=== PATIENT | male | born 1980 | race Two or more races ===

== ENCOUNTER 2021-07-17 12:51 | Inpatient (IN) | payer OTHER, MEDICAID ==
[~2021-07-17] VITALS: Ht 162.6 cm; Wt 62.7 kg
[2021-07-17] MEDS ORDERED: ACETAMINOPHEN 325 MG TABLET PO PRN (13:15)
[2021-07-17] MEDS ORDERED: 0.9% SODIUM CHLORIDE 10 ML SYRINGE IVP PRN (13:15)
[2021-07-17] MEDS ORDERED: MAGNESIUM SULFATE 2 GM, MVI, ADULT NO.1 WITH VIT K 10 ML, THIAMINE 100 MG, FOLIC ACID 1... IV ONE ×5 (13:15)
[2021-07-17] MEDS ORDERED: ONDANSETRON HCL 4 MG/2 ML VIAL IVP PRN ×2 (13:15→17:45)
[2021-07-17 13:26] LABS: COVID AG,FIA SOURCE NASOPHARYNGEAL
[2021-07-17 13:42] LABS: BASOPHILS % (AUTO) 3.2 % (0.0-2.0); EOSINOPHILS % (AUTO) 0.5 % (1.0-6.0); HEMOGLOBIN 14.4 g/dL (13.5-17.5); LYMPHOCYTES # (AUTO) 0.6 K/uL (1.0-4.8); LYMPHOCYTES % (AUTO) 13.2 % (22.0-44.0); MEAN CORPUSCULAR HEMOGLOBIN 34.2 pg (26.0-34.0); MEAN CORPUSCULAR VOLUME 98 fL (80-100); MONOCYTES # (AUTO) 0.5 K/uL (0.1-1.0); NEUTROPHILS # (AUTO) 3.2 K/uL (1.8-7.7); NEUTROPHILS % (AUTO) 72.1 % (40.0-70.0); PLATELET COUNT (AUTO) 84 K/uL (150-450); RED BLOOD CELL COUNT(AUTO) 4.21 MIL/uL (4.50-5.90); RED CELL DISTRIBUTION WIDTH 13.9 % (11.5-14.5)
[2021-07-17 13:44] LABS: ANION GAP 11 mmol/L (8-16); CALCIUM, TOTAL 8.7 mg/dL (8.8-10.5); CARBON DIOXIDE 30 mmol/L (22-29); CHLORIDE 101 mmol/L (98-107); CREATININE 0.58 mg/dL (0.60-1.30); GLUCOSE,RANDOM 128 mg/dL (70-110); POTASSIUM 3.4 mmol/L (3.5-5.1); SODIUM SERUM 142 mmol/L (136-145); UREA NITROGEN, BLOOD 5 mg/dL (7-18)
[2021-07-17 13:48] LABS: GLOMERULAR FILTR. RATE CALC > 60 mL/min (>60)
[2021-07-17 13:49] LABS: ALANINE AMINOTRANSFERASE 70 U/L (12-78); ALBUMIN 4.5 g/dL (3.4-5.0); ALKALINE PHOSPHATASE 146 U/L (46-116); ASPARTATE AMINOTRANSFERASE 88 U/L (15-37); BILIRUBIN,TOTAL 0.7 mg/dL (0.1-1.0); LIPASE 228 U/L (73-393); TOTAL PROTEIN, SERUM 8.7 g/dL (6.4-8.2)
[2021-07-17 15:48] VITALS: BP 156/83
[2021-07-17] MEDS ORDERED: POTASSIUM CHLORIDE 20 MEQ ER TABLET PO ONE (16:00)
[2021-07-17] MEDS ORDERED: ALBUTEROL SULFATE 2.5 MG/0.5 ML NEB SOLUTION NEB PRN (17:45)
[2021-07-17] MEDS ORDERED: MAGNESIUM HYDROXIDE SUSPENSION 30 ML UDCUP PO PRN (17:45)
[2021-07-17] MEDS: SODIUM CHLORIDE 0.45% 1,000 ML IV SCH (17:45)
[2021-07-17] MEDS ORDERED: BISACODYL 10 MG RECTAL RECTAL SUPPOSITORY PR PRN (17:45)
[2021-07-17] MEDS ORDERED: IPRATROPIUM BROMIDE 0.5 MG/2.5 ML NEB SOLUTION NEB PRN (17:45)
[2021-07-17] MEDS ORDERED: MORPHINE SULFATE 2 MG/ML SYRINGE IVP PRN (17:45)
[2021-07-17] MEDS ORDERED: ZOLPIDEM TARTRATE 5 MG TABLET PO PRN (17:45)
[2021-07-17] MEDS: ChlordiazePOXIDE HCL 25 MG CAPSULE PO SCH (17:59)
[2021-07-17 19:32] VITALS: BP 150/97
[2021-07-17] MEDS: DOCUSATE SODIUM 100 MG CAPSULE PO SCH (20:40)
[2021-07-17 23:00] LABS: APPEARANCE,URINE CLEAR (CLEAR); BILIRUBIN,URINE NEGATIVE (NEGATIVE); GLUCOSE, URINE (UA) NEGATIVE (NEGATIVE); KETONES,URINE NEGATIVE (NEGATIVE); LEUKOCYTE ESTERASE ,URINE NEGATIVE (NEGATIVE); NITRATE,URINE NEGATIVE (NEGATIVE); OCCULT BLOOD,URINE NEGATIVE (NEGATIVE); PH,URINE 7.5 (5.0-8.0); PROTEIN,URINE TRACE (NEGATIVE)
[2021-07-17 23:04] LABS: BACTERIA,URINE Rare /HPF (None Seen); RBC,URINE 0-2 /HPF (0-2); WBC,URINE 0-2 /HPF (0-5)
[2021-07-17 23:06] LABS: AMPHET/METH SCREEN,URINE NEGATIVE (NEGATIVE); BARBITURATE SCREEN, URINE NEGATIVE (NEGATIVE); BENZODIAZEPINES SCREEN,URINE NEGATIVE (NEGATIVE); CANNABINOID SCREEN,URINE NEGATIVE (NEGATIVE); COCAINE SCREEN,URINE NEGATIVE (NEGATIVE); METHADONE SCREEN, URINE NEGATIVE (NEGATIVE); OPIATE SCREEN,URINE NEGATIVE (NEGATIVE)
[2021-07-17 23:10] LABS: PHENCYCLIDINE SCREEN,URINE NEGATIVE (NEGATIVE)
[2021-07-18] MEDS: ChlordiazePOXIDE HCL 25 MG CAPSULE PO SCH ×4 (00:26→18:11)
[2021-07-18 04:34] VITALS: BP 140/94
[2021-07-18] MEDS: SODIUM CHLORIDE 0.45% 1,000 ML IV SCH ×2 (04:37→06:16)
[2021-07-18 07:18] VITALS: BP 139/94
[2021-07-18 07:53] LABS: BASOPHILS % (AUTO) 2.6 % (0.0-2.0); EOSINOPHILS % (AUTO) 2.2 % (1.0-6.0); HEMATOCRIT 40.4 % (41-53); HEMOGLOBIN 14.2 g/dL (13.5-17.5); LYMPHOCYTES # (AUTO) 0.5 K/uL (1.0-4.8); LYMPHOCYTES % (AUTO) 12.5 % (22.0-44.0); MEAN CORPUSCULAR HEMOGLOBIN 34.6 pg (26.0-34.0); MEAN CORPUSCULAR HGB CONC 35.2 G/dL (31.0-37.0); MEAN CORPUSCULAR VOLUME 98 fL (80-100); MONOCYTES # (AUTO) 0.5 K/uL (0.1-1.0); MONOCYTES % (AUTO) 12.1 % (2.0-9.0); NEUTROPHILS # (AUTO) 3.1 K/uL (1.8-7.7); NEUTROPHILS % (AUTO) 70.6 % (40.0-70.0); PLATELET COUNT (AUTO) 74 K/uL (150-450); RED BLOOD CELL COUNT(AUTO) 4.11 MIL/uL (4.50-5.90); RED CELL DISTRIBUTION WIDTH 13.7 % (11.5-14.5)
[2021-07-18] MEDS: MULTIVITAMINS, THERAPEUTIC TABLET PO SCH (08:00)
[2021-07-18] MEDS: DOCUSATE SODIUM 100 MG CAPSULE PO SCH (08:00)
[2021-07-18] MEDS: PANTOPRAZOLE SODIUM 40 MG/VIAL IVP SCH (08:00)
[2021-07-18] MEDS: THIAMINE 100 MG TABLET PO SCH (08:00)
[2021-07-18] MEDS: FOLIC ACID 1 MG TABLET PO SCH (08:00)
[2021-07-18 08:05] LABS: ALANINE AMINOTRANSFERASE 69 U/L (12-78); ALBUMIN 4.2 g/dL (3.4-5.0); ALKALINE PHOSPHATASE 139 U/L (46-116); ANION GAP 10 mmol/L (8-16); ASPARTATE AMINOTRANSFERASE 93 U/L (15-37); BILIRUBIN,TOTAL 1.6 mg/dL (0.1-1.0); CALCIUM, TOTAL 9.4 mg/dL (8.8-10.5); CARBON DIOXIDE 29 mmol/L (22-29); CHLORIDE 97 mmol/L (98-107); CREATININE 0.56 mg/dL (0.60-1.30); GLUCOSE,RANDOM 103 mg/dL (70-110); POTASSIUM 3.7 mmol/L (3.5-5.1); SODIUM SERUM 136 mmol/L (136-145); TOTAL PROTEIN, SERUM 8.1 g/dL (6.4-8.2); UREA NITROGEN, BLOOD 6 mg/dL (7-18)
[2021-07-18 08:08] LABS: GLOMERULAR FILTR. RATE CALC > 60 mL/min (>60)
[2021-07-18 13:48] VITALS: BP 134/82
[2021-07-18] MEDS: LORazepam 2 MG/ML VIAL IVP PRN (19:52)
[2021-07-18] MEDS ORDERED: DiphenhydrAMINE HCL 25 MG CAPSULE PO ONE (21:15)
[2021-07-18] MEDS ORDERED: DiphenhydrAMINE HCL 25 MG/10 ML SOLUTION UDCUP PO ONE (21:15)
[2021-07-18] MEDS ORDERED: HALOPERIDOL LACTATE 5 MG/ML VIAL IM ONE (21:15)
[2021-07-18] MEDS ORDERED: DiphenhydrAMINE HCL 50 MG/ML VIAL IM ONE (21:45)
[2021-07-19] VITALS (7 sets, daily range): BP systolic 100–142; BP diastolic 65–93
[2021-07-19] MEDS: LORazepam 2 MG/ML VIAL IVP PRN (00:48)
[2021-07-19] MEDS ORDERED: DIAZEPAM 5 MG/ML 2 ML SYRINGE IVP ONE (02:45)
[2021-07-19] MEDS ORDERED: DIAZEPAM 5 MG/ML 2 ML SYRINGE IVP PRN (03:00)
[2021-07-19] MEDS ORDERED: LORazepam 2 MG/ML VIAL IVP PRN (03:15)
[2021-07-19] MEDS ORDERED: MIDAZOLAM HCL 2 MG/2 ML VIAL ONE ×2 (03:32→03:42)
[2021-07-19] MEDS: MIDAZOLAM HCL 2 MG/2 ML VIAL IVP PRN ×4 (03:36→05:17)
[2021-07-19] MEDS ORDERED: RAPID SEQUENCE KIT [RSI] 1 EACH KIT MISC ONE (05:21)
[2021-07-19] MEDS ORDERED: ETOMIDATE 2 MG/ML 10 ML VIAL IVP ONE (05:45)
[2021-07-19] MEDS ORDERED: ROCURONIUM BROMIDE 10 MG/ML 5 ML VIAL IVP ONE (05:45)
[2021-07-19] MEDS: 1: MAGNESIUM SULFATE 2 GM, MVI, ADULT NO.1 WITH VIT K 10 ML, THIAMINE 100 MG, FOLIC ACID IV SCH ×5 (05:51)
[2021-07-19 08:21] LABS: ABG BASE EXCESS 0.8 mmol/L (-2.0-3.0); ABG CARBOXYHEMOGLOBIN 0.7 % (0.0-1.5); ABG HCO3 25.2 mmol/L (22.0-26.0); ABG METHEMOGLOBIN 0.3 % (0.0-1.5); ABG OXYGEN CONTENT 22.1 mL/dL (15.0-23.0); ABG OXYGEN SATURATION 99.7 % (95.0-98.0); ABG OXYHEMOGLOBIN 98.7 % (94.0-100.0); ABG PCO2 41 mmHg (35-45); ABG PH 7.408 (7.35-7.450); PO2, ARTERIAL BG 485.3 mmHg (88.0-96.0); SOURCE, BLOOD GAS ARTERIAL; TEMPERATURE, FAHRENHEIT, BG 98.8 FAHREN (96.0-98.6)
[2021-07-19 08:22] LABS: O2 DEVICE,BLOOD GAS VENTILATOR (ROOM AIR); PEEP,BG 5 cm H2O; SITE, BLOOD GAS RT RADIAL; SPONTANEOUS VT, BG 421 ml; VT, ABG 450 ml
[2021-07-19 09:13] LABS: BASOPHILS % (AUTO) 1.3 % (0.0-2.0); EOSINOPHILS % (AUTO) 0.4 % (1.0-6.0); HEMOGLOBIN 14.1 g/dL (13.5-17.5); LYMPHOCYTES # (AUTO) 0.5 K/uL (1.0-4.8); LYMPHOCYTES % (AUTO) 7.6 % (22.0-44.0); MEAN CORPUSCULAR HEMOGLOBIN 34.3 pg (26.0-34.0); MEAN CORPUSCULAR HGB CONC 35.1 G/dL (31.0-37.0); MEAN CORPUSCULAR VOLUME 98 fL (80-100); MONOCYTES # (AUTO) 0.6 K/uL (0.1-1.0); MONOCYTES % (AUTO) 9.5 % (2.0-9.0); NEUTROPHILS # (AUTO) 5.1 K/uL (1.8-7.7); NEUTROPHILS % (AUTO) 81.2 % (40.0-70.0); PLATELET COUNT (AUTO) 78 K/uL (150-450); RED CELL DISTRIBUTION WIDTH 13.9 % (11.5-14.5)
[2021-07-19 09:54] LABS: ALANINE AMINOTRANSFERASE 69 U/L (12-78); ALBUMIN 4.2 g/dL (3.4-5.0); ALKALINE PHOSPHATASE 120 U/L (46-116); ANION GAP 12 mmol/L (8-16); ASPARTATE AMINOTRANSFERASE 128 U/L (15-37); BILIRUBIN,TOTAL 1.6 mg/dL (0.1-1.0); CARBON DIOXIDE 25 mmol/L (22-29); CHLORIDE 100 mmol/L (98-107); CREATINE KINASE, TOTAL ONLY 3648 U/L (39-308); CREATININE 0.59 mg/dL (0.60-1.30); GLOMERULAR FILTR. RATE CALC > 60 mL/min (>60); GLUCOSE,RANDOM 118 mg/dL (70-110); POTASSIUM 3.2 mmol/L (3.5-5.1); SODIUM SERUM 137 mmol/L (136-145); UREA NITROGEN, BLOOD 11 mg/dL (7-18)
[2021-07-19] MEDS: FOLIC ACID 1 MG TABLET PO SCH (10:02)
[2021-07-19] MEDS: MULTIVITAMINS, THERAPEUTIC TABLET PO SCH (10:02)
[2021-07-19] MEDS: THIAMINE 100 MG TABLET PO SCH (10:02)
[2021-07-19] MEDS: ETHYL ALCOHOL 62% ANTISEPTIC NASAL INHALANT 0.6 ML AMPUL NASAL SCH ×2 (10:02→22:58)
[2021-07-19] MEDS: PANTOPRAZOLE SODIUM 40 MG/VIAL IVP SCH (10:02)
[2021-07-19] MEDS: ChlordiazePOXIDE HCL 25 MG CAPSULE PO SCH ×5 (11:19→23:37)
[2021-07-19] MEDS: POTASSIUM CHLORIDE 20 MEQ ER TABLET PO PRN (12:47)
[2021-07-19] MEDS: PROPOFOL 1000 MG/ISO-OSM 100 ML IV PRN ×2 (16:30→20:25)
[2021-07-19] MEDS: MIDAZOLAM HCL 100 MG in SODIUM CHLORIDE 0.9% 180 ML IV PRN (18:12)
[2021-07-19] MEDS ORDERED: SODIUM CHLORIDE 0.9% 1,000 ML ONE (19:09)
[2021-07-20] VITALS: BP 107/74
[2021-07-20] MEDS: PROPOFOL 1000 MG/ISO-OSM 100 ML IV PRN ×5 (00:55→23:33)
[2021-07-20] MEDS: MIDAZOLAM HCL 100 MG in SODIUM CHLORIDE 0.9% 180 ML IV PRN ×3 (03:15→23:10)
[2021-07-20 04:00] VITALS: BP 111/62
[2021-07-20] MEDS: ChlordiazePOXIDE HCL 25 MG CAPSULE PO SCH ×4 (05:29→23:08)
[2021-07-20 05:43] LABS: BASOPHILS % (AUTO) 1.2 % (0.0-2.0); EOSINOPHILS % (AUTO) 1.3 % (1.0-6.0); HEMATOCRIT 39.5 % (41-53); HEMOGLOBIN 13.5 g/dL (13.5-17.5); LYMPHOCYTES # (AUTO) 0.5 K/uL (1.0-4.8); LYMPHOCYTES % (AUTO) 7.9 % (22.0-44.0); MEAN CORPUSCULAR HEMOGLOBIN 34.2 pg (26.0-34.0); MEAN CORPUSCULAR HGB CONC 34.3 G/dL (31.0-37.0); MEAN CORPUSCULAR VOLUME 100 fL (80-100); MONOCYTES # (AUTO) 0.6 K/uL (0.1-1.0); MONOCYTES % (AUTO) 9.5 % (2.0-9.0); NEUTROPHILS % (AUTO) 80.1 % (40.0-70.0); PLATELET COUNT (AUTO) 80 K/uL (150-450); RED BLOOD CELL COUNT(AUTO) 3.96 MIL/uL (4.50-5.90); RED CELL DISTRIBUTION WIDTH 13.8 % (11.5-14.5)
[2021-07-20 08:00] VITALS: BP 108/60
[2021-07-20 08:23] LABS: POTASSIUM 3.3 mmol/L (3.5-5.1)
[2021-07-20] MEDS: 1: MAGNESIUM SULFATE 2 GM, MVI, ADULT NO.1 WITH VIT K 10 ML, THIAMINE 100 MG, FOLIC ACID IV SCH ×10 (09:04→21:31)
[2021-07-20] MEDS: MULTIVITAMINS, THERAPEUTIC TABLET PO SCH (09:06)
[2021-07-20] MEDS: THIAMINE 100 MG TABLET PO SCH (09:06)
[2021-07-20] MEDS: FOLIC ACID 1 MG TABLET PO SCH (09:07)
[2021-07-20] MEDS: PANTOPRAZOLE SODIUM 40 MG/VIAL IVP SCH (09:09)
[2021-07-20] MEDS: ETHYL ALCOHOL 62% ANTISEPTIC NASAL INHALANT 0.6 ML AMPUL NASAL SCH ×2 (09:10→20:07)
[2021-07-20] MEDS: POTASSIUM CHLORIDE 20 MEQ ER TABLET PO PRN ×2 (10:07→15:23)
[2021-07-20 10:32] LABS: ANION GAP 15 mmol/L (8-16); CALCIUM, TOTAL 8.6 mg/dL (8.8-10.5); CARBON DIOXIDE 21 mmol/L (22-29); CHLORIDE 104 mmol/L (98-107); CREATININE 0.56 mg/dL (0.60-1.30); GLUCOSE,RANDOM 85 mg/dL (70-110); SODIUM SERUM 140 mmol/L (136-145); UREA NITROGEN, BLOOD 12 mg/dL (7-18)
[2021-07-20 10:33] LABS: GLOMERULAR FILTR. RATE CALC > 60 mL/min (>60)
[2021-07-20 12:00] VITALS: BP 129/75
[2021-07-20 15:07] LABS: ANION GAP 9 mmol/L (8-16); CALCIUM, TOTAL 8.4 mg/dL (8.8-10.5); CARBON DIOXIDE 25 mmol/L (22-29); CHLORIDE 104 mmol/L (98-107); CREATININE 0.53 mg/dL (0.60-1.30); GLOMERULAR FILTR. RATE CALC > 60 mL/min (>60); GLUCOSE,RANDOM 83 mg/dL (70-110); POTASSIUM 3.4 mmol/L (3.5-5.1); SODIUM SERUM 138 mmol/L (136-145); UREA NITROGEN, BLOOD 12 mg/dL (7-18)
[2021-07-20 16:00] VITALS: BP 124/78
[2021-07-20] MEDS ORDERED: DEXMEDETOMIDINE HCL 200 MCG in SODIUM CHLORIDE 0.9% 48 ML IV PRN (17:15)
[2021-07-20 20:00] VITALS: BP 128/78
[2021-07-21] VITALS (7 sets, daily range): BP systolic 82–125; BP diastolic 45–78
[2021-07-21] MEDS: PROPOFOL 1000 MG/ISO-OSM 100 ML IV PRN ×4 (03:31→23:03)
[2021-07-21] MEDS: DEXMEDETOMIDINE HCL 400 MCG in SODIUM CHLORIDE 0.9% 96 ML IV PRN ×2 (03:33→21:35)
[2021-07-21] MEDS: ACETAMINOPHEN 325 MG TABLET PO PRN (03:46)
[2021-07-21 05:15] LABS: BASOPHILS % (AUTO) 0.4 % (0.0-2.0); EOSINOPHILS % (AUTO) 0.4 % (1.0-6.0); HEMATOCRIT 38.7 % (41-53); HEMOGLOBIN 13.2 g/dL (13.5-17.5); LYMPHOCYTES # (AUTO) 0.2 K/uL (1.0-4.8); LYMPHOCYTES % (AUTO) 4.6 % (22.0-44.0); MEAN CORPUSCULAR HEMOGLOBIN 34.1 pg (26.0-34.0); MEAN CORPUSCULAR HGB CONC 34.2 G/dL (31.0-37.0); MEAN CORPUSCULAR VOLUME 100 fL (80-100); MONOCYTES # (AUTO) 0.5 K/uL (0.1-1.0); MONOCYTES % (AUTO) 9.5 % (2.0-9.0); NEUTROPHILS # (AUTO) 4.5 K/uL (1.8-7.7); NEUTROPHILS % (AUTO) 85.1 % (40.0-70.0); PLATELET COUNT (AUTO) 81 K/uL (150-450); RED BLOOD CELL COUNT(AUTO) 3.87 MIL/uL (4.50-5.90)
[2021-07-21 05:27] LABS: MAGNESIUM 1.9 mg/dL (1.80-2.40); PHOSPHORUS 3.5 mg/dL (2.5-4.9)
[2021-07-21] MEDS: ChlordiazePOXIDE HCL 25 MG CAPSULE PO SCH ×4 (05:37→23:00)
[2021-07-21] MEDS: THIAMINE 100 MG TABLET PO SCH (09:00)
[2021-07-21] MEDS: FOLIC ACID 1 MG TABLET PO SCH (09:00)
[2021-07-21] MEDS: MULTIVITAMINS, THERAPEUTIC TABLET PO SCH (09:00)
[2021-07-21 09:35] LABS: ANION GAP 12 mmol/L (8-16); CALCIUM, TOTAL 8.1 mg/dL (8.8-10.5); CARBON DIOXIDE 22 mmol/L (22-29); CHLORIDE 105 mmol/L (98-107); GLOMERULAR FILTR. RATE CALC > 60 mL/min (>60); GLUCOSE,RANDOM 82 mg/dL (70-110); POTASSIUM 3.6 mmol/L (3.5-5.1); SODIUM SERUM 139 mmol/L (136-145); UREA NITROGEN, BLOOD 13 mg/dL (7-18)
[2021-07-21] MEDS: PANTOPRAZOLE SODIUM 40 MG/VIAL IVP SCH (09:42)
[2021-07-21] MEDS: ETHYL ALCOHOL 62% ANTISEPTIC NASAL INHALANT 0.6 ML AMPUL NASAL SCH ×2 (09:42→19:56)
[2021-07-21] MEDS: 1: MAGNESIUM SULFATE 2 GM, MVI, ADULT NO.1 WITH VIT K 10 ML, THIAMINE 100 MG, FOLIC ACID IV SCH ×10 (12:27→23:52)
[2021-07-21] MEDS ORDERED: SODIUM CHLORIDE 0.9% 1,000 ML ONE (23:51)
[2021-07-22] VITALS: BP 98/43
[2021-07-22 04:00] VITALS: BP 98/65
[2021-07-22 06:16] LABS: BASOPHILS % (AUTO) 0.9 % (0.0-2.0); EOSINOPHILS % (AUTO) 2.8 % (1.0-6.0); HEMATOCRIT 36.4 % (41-53); HEMOGLOBIN 12.5 g/dL (13.5-17.5); LYMPHOCYTES # (AUTO) 0.7 K/uL (1.0-4.8); LYMPHOCYTES % (AUTO) 10.1 % (22.0-44.0); MEAN CORPUSCULAR HEMOGLOBIN 34.5 pg (26.0-34.0); MEAN CORPUSCULAR HGB CONC 34.4 G/dL (31.0-37.0); MEAN CORPUSCULAR VOLUME 100 fL (80-100); MONOCYTES # (AUTO) 0.7 K/uL (0.1-1.0); MONOCYTES % (AUTO) 9.9 % (2.0-9.0); NEUTROPHILS # (AUTO) 5.3 K/uL (1.8-7.7); NEUTROPHILS % (AUTO) 76.3 % (40.0-70.0); PLATELET COUNT (AUTO) 80 K/uL (150-450); RED BLOOD CELL COUNT(AUTO) 3.64 MIL/uL (4.50-5.90); RED CELL DISTRIBUTION WIDTH 13.9 % (11.5-14.5)
[2021-07-22] MEDS: ChlordiazePOXIDE HCL 25 MG CAPSULE PO SCH ×4 (06:18→23:42)
[2021-07-22] MEDS: DEXMEDETOMIDINE HCL 400 MCG in SODIUM CHLORIDE 0.9% 96 ML IV PRN ×2 (07:29→17:22)
[2021-07-22] MEDS: PROPOFOL 1000 MG/ISO-OSM 100 ML IV PRN ×2 (07:30→23:56)
[2021-07-22] MEDS: ETHYL ALCOHOL 62% ANTISEPTIC NASAL INHALANT 0.6 ML AMPUL NASAL SCH ×2 (07:39→21:44)
[2021-07-22] MEDS: FOLIC ACID 1 MG TABLET PO SCH (07:39)
[2021-07-22] MEDS: THIAMINE 100 MG TABLET PO SCH (07:39)
[2021-07-22] MEDS: MULTIVITAMINS, THERAPEUTIC TABLET PO SCH (07:39)
[2021-07-22] MEDS: PANTOPRAZOLE SODIUM 40 MG/VIAL IVP SCH (07:40)
[2021-07-22 08:00] VITALS: BP 104/63
[2021-07-22 12:00] VITALS: BP 129/80
[2021-07-22] MEDS: ACETAMINOPHEN 325 MG TABLET PO PRN (13:13)
[2021-07-22 16:15] VITALS: BP 117/68
[2021-07-22 20:00] VITALS: BP 123/74
[2021-07-23] VITALS: BP 120/84
[2021-07-23] MEDS ORDERED: SODIUM CHLORIDE 0.9% 1,000 ML ONE (03:04)
[2021-07-23 04:00] VITALS: BP 126/80
[2021-07-23 05:08] LABS: BASOPHILS % (AUTO) 1.1 % (0.0-2.0); HEMATOCRIT 36.6 % (41-53); HEMOGLOBIN 12.8 g/dL (13.5-17.5); LYMPHOCYTES # (AUTO) 0.7 K/uL (1.0-4.8); LYMPHOCYTES % (AUTO) 10.8 % (22.0-44.0); MEAN CORPUSCULAR HEMOGLOBIN 34.7 pg (26.0-34.0); MEAN CORPUSCULAR HGB CONC 35.1 G/dL (31.0-37.0); MEAN CORPUSCULAR VOLUME 99 fL (80-100); MONOCYTES # (AUTO) 0.8 K/uL (0.1-1.0); MONOCYTES % (AUTO) 12.4 % (2.0-9.0); NEUTROPHILS % (AUTO) 72.7 % (40.0-70.0); PLATELET COUNT (AUTO) 96 K/uL (150-450); RED CELL DISTRIBUTION WIDTH 13.7 % (11.5-14.5)
[2021-07-23] MEDS: ChlordiazePOXIDE HCL 25 MG CAPSULE PO SCH ×3 (05:49→17:47)
[2021-07-23] MEDS: PANTOPRAZOLE SODIUM 40 MG/VIAL IVP SCH (07:43)
[2021-07-23] MEDS: ETHYL ALCOHOL 62% ANTISEPTIC NASAL INHALANT 0.6 ML AMPUL NASAL SCH ×2 (07:43→21:22)
[2021-07-23] MEDS: MULTIVITAMINS, THERAPEUTIC TABLET PO SCH (07:43)
[2021-07-23] MEDS: FOLIC ACID 1 MG TABLET PO SCH (07:43)
[2021-07-23] MEDS: POTASSIUM CHL 10 MEQ/WATER 50 ML IV PRN ×3 (07:44→10:44)
[2021-07-23] MEDS: THIAMINE 100 MG TABLET PO SCH (07:44)
[2021-07-23] MEDS: DEXMEDETOMIDINE HCL 400 MCG in SODIUM CHLORIDE 0.9% 96 ML IV PRN ×5 (07:47→21:30)
[2021-07-23 08:00] VITALS: BP 126/85
[2021-07-23 10:44] LABS: ABG CARBOXYHEMOGLOBIN 0.5 % (0.0-1.5); ABG HCO3 26.2 mmol/L (22.0-26.0); ABG METHEMOGLOBIN 0.3 % (0.0-1.5); ABG OXYGEN CONTENT 18.4 mL/dL (15.0-23.0); ABG OXYGEN SATURATION 95.9 % (95.0-98.0); ABG OXYHEMOGLOBIN 95.1 % (94.0-100.0); ABG PCO2 40 mmHg (35-45); ABG PH 7.437 (7.35-7.450); ABG TOTAL HEMOGLOBIN 13.7 G/dL (12.0-18.0); PO2, ARTERIAL BG 77.2 mmHg (88.0-96.0); SOURCE, BLOOD GAS ARTERIAL; TEMPERATURE, FAHRENHEIT, BG 98.6 FAHREN (96.0-98.6)
[2021-07-23 10:45] LABS: SITE, BLOOD GAS RT BRACHIAL
[2021-07-23 10:46] LABS: ABG A-A DIFF O2 126.1 mmHg (10-20.0); O2 DEVICE,BLOOD GAS VENTILATOR (ROOM AIR); VENT MODE, BG CPAP (ROOM AIR)
[2021-07-23 10:47] LABS: CPAP, BG 5 cm H2O; PRESSURE SUPPORT, BG 8 cm H2O; SPONTANEOUS VT, BG 567 ml
[2021-07-23 12:00] VITALS: BP 122/74
[2021-07-23 16:00] VITALS: BP 151/91
[2021-07-23] MEDS: LORazepam 2 MG/ML VIAL IVP PRN (20:03)
[2021-07-23 20:37] VITALS: BP 143/87
[2021-07-24] MEDS: LORazepam 2 MG/ML VIAL IVP PRN ×3 (00:04→09:13)
[2021-07-24] MEDS: ChlordiazePOXIDE HCL 25 MG CAPSULE PO SCH ×4 (00:29→18:02)
[2021-07-24 00:58] VITALS: BP 147/47
[2021-07-24 04:00] VITALS: BP 104/61
[2021-07-24] MEDS: ACETAMINOPHEN 325 MG TABLET PO PRN (05:12)
[2021-07-24 06:24] LABS: BASOPHILS % (AUTO) 0.9 % (0.0-2.0); EOSINOPHILS % (AUTO) 0.6 % (1.0-6.0); HEMATOCRIT 38.5 % (41-53); HEMOGLOBIN 13.5 g/dL (13.5-17.5); LYMPHOCYTES # (AUTO) 0.7 K/uL (1.0-4.8); LYMPHOCYTES % (AUTO) 7.1 % (22.0-44.0); MEAN CORPUSCULAR HEMOGLOBIN 34.3 pg (26.0-34.0); MEAN CORPUSCULAR VOLUME 98 fL (80-100); MONOCYTES # (AUTO) 1.6 K/uL (0.1-1.0); MONOCYTES % (AUTO) 16.4 % (2.0-9.0); NEUTROPHILS # (AUTO) 7.2 K/uL (1.8-7.7); PLATELET COUNT (AUTO) 138 K/uL (150-450); RED BLOOD CELL COUNT(AUTO) 3.94 MIL/uL (4.50-5.90); RED CELL DISTRIBUTION WIDTH 13.6 % (11.5-14.5)
[2021-07-24] MEDS: MULTIVITAMINS, THERAPEUTIC TABLET PO SCH (07:51)
[2021-07-24] MEDS: THIAMINE 100 MG TABLET PO SCH (07:51)
[2021-07-24] MEDS: PANTOPRAZOLE SODIUM 40 MG/VIAL IVP SCH (07:51)
[2021-07-24] MEDS: ETHYL ALCOHOL 62% ANTISEPTIC NASAL INHALANT 0.6 ML AMPUL NASAL SCH ×2 (07:51→21:48)
[2021-07-24] MEDS: FOLIC ACID 1 MG TABLET PO SCH (07:51)
[2021-07-24 08:00] VITALS: BP 115/74
[2021-07-24] MEDS ORDERED: *CLINICAL-PERIPHERAL PARENTERAL NUTRITION DOSING CLINICAL ONE (09:30)
[2021-07-24] MEDS: DEXMEDETOMIDINE HCL 400 MCG in SODIUM CHLORIDE 0.9% 96 ML IV PRN ×2 (11:51→16:27)
[2021-07-24 11:56] LABS: ANION GAP 11 mmol/L (8-16); CALCIUM, TOTAL 9.2 mg/dL (8.8-10.5); CARBON DIOXIDE 30 mmol/L (22-29); CHLORIDE 100 mmol/L (98-107); CREATININE 0.67 mg/dL (0.60-1.30); GLOMERULAR FILTR. RATE CALC > 60 mL/min (>60); GLUCOSE,RANDOM 90 mg/dL (70-110); PHOSPHORUS 4.9 mg/dL (2.5-4.9); SODIUM SERUM 141 mmol/L (136-145); UREA NITROGEN, BLOOD 8 mg/dL (7-18)
[2021-07-24] MEDS ORDERED: SODIUM CHLORIDE 0.9% 250 ML IV ONE (11:56)
[2021-07-24 12:00] VITALS: BP 129/84
[2021-07-24 12:05] LABS: POTASSIUM 2.6 mmol/L (3.5-5.1)
[2021-07-24 13:24] LABS: ANION GAP 14 mmol/L (8-16); CALCIUM, TOTAL 9.1 mg/dL (8.8-10.5); CARBON DIOXIDE 28 mmol/L (22-29); CHLORIDE 100 mmol/L (98-107); CREATININE 0.63 mg/dL (0.60-1.30); GLOMERULAR FILTR. RATE CALC > 60 mL/min (>60); GLUCOSE,RANDOM 90 mg/dL (70-110); PHOSPHORUS 5.1 mg/dL (2.5-4.9); SODIUM SERUM 142 mmol/L (136-145); UREA NITROGEN, BLOOD 8 mg/dL (7-18)
[2021-07-24 13:25] LABS: POTASSIUM 2.7 mmol/L (3.5-5.1)
[2021-07-24] MEDS: POTASSIUM CHL 10 MEQ/WATER 50 ML IV PRN ×3 (13:42→13:44)
[2021-07-24] MEDS: SCOPOLAMINE HYDROBROMIDE 1 MG/72 HOUR PATCH TD SCH (13:49)
[2021-07-24] MEDS ORDERED: SODIUM CHLORIDE IV SCH ×9 (15:45)
[2021-07-24] MEDS ORDERED: [UNRECOGNIZED DRUG - OTHER] IV SCH ×9 (15:45)
[2021-07-24] MEDS ORDERED: POTASSIUM CHLORIDE IV SCH ×9 (15:45)
[2021-07-24] MEDS ORDERED: PPN IV SCH ×9 (15:45)
[2021-07-24] MEDS: PIPERACILLIN/TAZO 3.375 GM/D5W 50 ML IV SCH ×2 (15:47→21:48)
[2021-07-24 16:00] VITALS: BP 137/85
[2021-07-24 20:00] VITALS: BP 135/85
[2021-07-24] MEDS: [UNRECOGNIZED DRUG - OTHER] IV SCH ×9 (22:28)
[2021-07-24] MEDS: POTASSIUM CHLORIDE IV SCH ×9 (22:28)
[2021-07-24] MEDS: PPN IV SCH ×9 (22:28)
[2021-07-24] MEDS: SODIUM CHLORIDE IV SCH ×9 (22:28)
[2021-07-25] MEDS: ChlordiazePOXIDE HCL 25 MG CAPSULE PO SCH ×5 (00:05→23:12)
[2021-07-25 00:26] VITALS: BP 125/85
[2021-07-25] MEDS: DEXMEDETOMIDINE HCL 400 MCG in SODIUM CHLORIDE 0.9% 96 ML IV PRN ×4 (00:54→20:41)
[2021-07-25] MEDS: LORazepam 2 MG/ML VIAL IVP PRN ×2 (01:58→15:55)
[2021-07-25] MEDS: PIPERACILLIN/TAZO 3.375 GM/D5W 50 ML IV SCH ×4 (02:56→20:41)
[2021-07-25] MEDS: POTASSIUM CHL 10 MEQ/WATER 50 ML IV PRN ×4 (03:04→10:49)
[2021-07-25 04:00] VITALS: BP 142/91
[2021-07-25 05:31] LABS: ANION GAP 5 mmol/L (8-16); CALCIUM, TOTAL 9.1 mg/dL (8.8-10.5); CARBON DIOXIDE 32 mmol/L (22-29); CHLORIDE 100 mmol/L (98-107); CREATININE 0.62 mg/dL (0.60-1.30); GLOMERULAR FILTR. RATE CALC > 60 mL/min (>60); GLUCOSE,RANDOM 149 mg/dL (70-110); PHOSPHORUS 3.2 mg/dL (2.5-4.9); POTASSIUM 3.2 mmol/L (3.5-5.1); SODIUM SERUM 137 mmol/L (136-145); UREA NITROGEN, BLOOD 10 mg/dL (7-18)
[2021-07-25] MEDS: ACETAMINOPHEN 325 MG TABLET PO PRN ×2 (05:44→20:43)
[2021-07-25] MEDS: PANTOPRAZOLE SODIUM 40 MG/VIAL IVP SCH (08:08)
[2021-07-25] MEDS: ETHYL ALCOHOL 62% ANTISEPTIC NASAL INHALANT 0.6 ML AMPUL NASAL SCH ×2 (08:08→20:41)
[2021-07-25 08:34] VITALS: BP 125/84
[2021-07-25] MEDS: QUEtiapine FUMARATE 25 MG TABLET PO SCH ×2 (10:49→20:43)
[2021-07-25 12:00] VITALS: BP 111/72
[2021-07-25 17:29] VITALS: BP 138/90
[2021-07-25 20:00] VITALS: BP 121/79
[2021-07-25] MEDS: POTASSIUM CHLORIDE IV SCH ×9 (21:48)
[2021-07-25] MEDS: [UNRECOGNIZED DRUG - OTHER] IV SCH ×9 (21:48)
[2021-07-25] MEDS: SODIUM CHLORIDE IV SCH ×9 (21:48)
[2021-07-25] MEDS: PPN IV SCH ×9 (21:48)
[2021-07-26] VITALS: BP 117/70
[2021-07-26] MEDS: PIPERACILLIN/TAZO 3.375 GM/D5W 50 ML IV SCH ×4 (02:20→20:56)
[2021-07-26 04:00] VITALS: BP 124/81
[2021-07-26] MEDS: ChlordiazePOXIDE HCL 25 MG CAPSULE PO SCH ×4 (05:19→23:17)
[2021-07-26 05:33] LABS: ANION GAP 8 mmol/L (8-16); CALCIUM, TOTAL 9.3 mg/dL (8.8-10.5); CARBON DIOXIDE 31 mmol/L (22-29); CHLORIDE 102 mmol/L (98-107); CREATININE 0.79 mg/dL (0.60-1.30); GLOMERULAR FILTR. RATE CALC > 60 mL/min (>60); GLUCOSE,RANDOM 125 mg/dL (70-110); PHOSPHORUS 3.8 mg/dL (2.5-4.9); POTASSIUM 3.2 mmol/L (3.5-5.1); SODIUM SERUM 141 mmol/L (136-145); UREA NITROGEN, BLOOD 12 mg/dL (7-18)
[2021-07-26 08:00] VITALS: BP 102/51
[2021-07-26] MEDS: PANTOPRAZOLE SODIUM 40 MG/VIAL IVP SCH (08:58)
[2021-07-26] MEDS: ETHYL ALCOHOL 62% ANTISEPTIC NASAL INHALANT 0.6 ML AMPUL NASAL SCH ×2 (08:58→20:55)
[2021-07-26] MEDS: QUEtiapine FUMARATE 25 MG TABLET PO SCH ×2 (09:54→21:15)
[2021-07-26 12:00] VITALS: BP 112/68
[2021-07-26] MEDS: LORazepam 2 MG/ML VIAL IVP PRN (14:21)
[2021-07-26 16:00] VITALS: BP 105/75
[2021-07-26 20:00] VITALS: BP 112/73
[2021-07-26] MEDS: ACETAMINOPHEN 325 MG TABLET PO PRN (20:57)
[2021-07-26] MEDS ORDERED: POTASSIUM CHLORIDE IV SCH ×9 (22:00)
[2021-07-26] MEDS ORDERED: SODIUM CHLORIDE IV SCH ×9 (22:00)
[2021-07-26] MEDS ORDERED: PPN IV SCH ×9 (22:00)
[2021-07-26] MEDS ORDERED: [UNRECOGNIZED DRUG - OTHER] IV SCH ×9 (22:00)
[2021-07-27] VITALS: BP 121/76
[2021-07-27] MEDS: PIPERACILLIN/TAZO 3.375 GM/D5W 50 ML IV SCH ×4 (03:30→20:20)
[2021-07-27 04:00] VITALS: BP 121/71
[2021-07-27] MEDS: ChlordiazePOXIDE HCL 25 MG CAPSULE PO SCH ×4 (05:02→23:27)
[2021-07-27 06:17] LABS: ANION GAP 9 mmol/L (8-16); CALCIUM, TOTAL 9.1 mg/dL (8.8-10.5); CARBON DIOXIDE 30 mmol/L (22-29); CHLORIDE 101 mmol/L (98-107); CREATININE 0.69 mg/dL (0.60-1.30); GLOMERULAR FILTR. RATE CALC > 60 mL/min (>60); GLUCOSE,RANDOM 126 mg/dL (70-110); PHOSPHORUS 3.9 mg/dL (2.5-4.9); SODIUM SERUM 140 mmol/L (136-145); UREA NITROGEN, BLOOD 13 mg/dL (7-18)
[2021-07-27 08:00] VITALS: BP 118/75
[2021-07-27] MEDS: PANTOPRAZOLE SODIUM 40 MG/VIAL IVP SCH (08:32)
[2021-07-27] MEDS: ETHYL ALCOHOL 62% ANTISEPTIC NASAL INHALANT 0.6 ML AMPUL NASAL SCH ×2 (08:32→20:20)
[2021-07-27] MEDS: SCOPOLAMINE HYDROBROMIDE 1 MG/72 HOUR PATCH TD SCH (08:33)
[2021-07-27] MEDS: QUEtiapine FUMARATE 25 MG TABLET PO SCH ×2 (08:33→21:00)
[2021-07-27] MEDS ORDERED: SCOPOLAMINE HYDROBROMIDE 1 MG/72 HOUR PATCH TD SCH (09:00)
[2021-07-27 12:00] VITALS: BP 124/79
[2021-07-27] MEDS ORDERED: SODIUM CHLORIDE 0.9% 250 ML IV ONE (13:03)
[2021-07-27] MEDS: POTASSIUM CHL 10 MEQ/WATER 50 ML IV PRN ×7 (13:22→23:27)
[2021-07-27 16:00] VITALS: BP 119/76
[2021-07-27 20:10] VITALS: BP 124/83
[2021-07-27] MEDS ORDERED: SODIUM CHLORIDE IV SCH ×8 (22:00)
[2021-07-27] MEDS ORDERED: POTASSIUM CHLORIDE IV SCH ×8 (22:00)
[2021-07-27] MEDS ORDERED: PPN IV SCH ×8 (22:00)
[2021-07-27] MEDS ORDERED: [UNRECOGNIZED DRUG - OTHER] IV SCH ×8 (22:00)
[2021-07-27] MEDS: LORazepam 2 MG/ML VIAL IVP PRN (23:32)
[2021-07-28] VITALS (7 sets, daily range): BP systolic 108–149; BP diastolic 41–84
[2021-07-28] MEDS: PIPERACILLIN/TAZO 3.375 GM/D5W 50 ML IV SCH ×4 (02:23→21:37)
[2021-07-28] MEDS: QUEtiapine FUMARATE 25 MG TABLET PO SCH (08:00)
[2021-07-28] MEDS: ETHYL ALCOHOL 62% ANTISEPTIC NASAL INHALANT 0.6 ML AMPUL NASAL SCH ×2 (08:00→21:00)
[2021-07-28] MEDS: ChlordiazePOXIDE HCL 25 MG CAPSULE PO SCH (08:00)
[2021-07-28] MEDS: PANTOPRAZOLE SODIUM 40 MG/VIAL IVP SCH (08:04)
[2021-07-28 13:49] LABS: ANION GAP 10 mmol/L (8-16); CALCIUM, TOTAL 9.2 mg/dL (8.8-10.5); CARBON DIOXIDE 25 mmol/L (22-29); CHLORIDE 103 mmol/L (98-107); CREATININE 0.66 mg/dL (0.60-1.30); GLOMERULAR FILTR. RATE CALC > 60 mL/min (>60); GLUCOSE,RANDOM 125 mg/dL (70-110); PHOSPHORUS 4.8 mg/dL (2.5-4.9); POTASSIUM 3.7 mmol/L (3.5-5.1); SODIUM SERUM 138 mmol/L (136-145); UREA NITROGEN, BLOOD 14 mg/dL (7-18)
[2021-07-28] MEDS: ChlordiazePOXIDE HCL 10 MG CAPSULE PO SCH ×2 (15:51→23:39)
[2021-07-28] MEDS ORDERED: QUEtiapine FUMARATE 25 MG TABLET PO SCH (21:00)
[2021-07-28] MEDS: [UNRECOGNIZED DRUG - OTHER] IV SCH ×8 (21:38)
[2021-07-28] MEDS: POTASSIUM CHLORIDE IV SCH ×8 (21:38)
[2021-07-28] MEDS: SODIUM CHLORIDE IV SCH ×8 (21:38)
[2021-07-28] MEDS: PPN IV SCH ×8 (21:38)
[2021-07-28] MEDS ORDERED: SODIUM CHLORIDE 0.9% 250 ML IV ONE (23:37)
[2021-07-29 00:03] VITALS: BP 111/66
[2021-07-29] MEDS: PIPERACILLIN/TAZO 3.375 GM/D5W 50 ML IV SCH ×4 (03:14→22:07)
[2021-07-29 04:13] VITALS: BP 118/75
[2021-07-29 07:13] VITALS: BP 117/74
[2021-07-29 07:30] LABS: ANION GAP 9 mmol/L (8-16); CALCIUM, TOTAL 9.2 mg/dL (8.8-10.5); CARBON DIOXIDE 26 mmol/L (22-29); CHLORIDE 106 mmol/L (98-107); CREATININE 0.67 mg/dL (0.60-1.30); GLOMERULAR FILTR. RATE CALC > 60 mL/min (>60); GLUCOSE,RANDOM 106 mg/dL (70-110); PHOSPHORUS 3.7 mg/dL (2.5-4.9); POTASSIUM 3.7 mmol/L (3.5-5.1); SODIUM SERUM 141 mmol/L (136-145); UREA NITROGEN, BLOOD 17 mg/dL (7-18)
[2021-07-29] MEDS: ChlordiazePOXIDE HCL 10 MG CAPSULE PO SCH ×2 (09:14→16:14)
[2021-07-29] MEDS: ETHYL ALCOHOL 62% ANTISEPTIC NASAL INHALANT 0.6 ML AMPUL NASAL SCH ×2 (09:14→21:13)
[2021-07-29] MEDS: PANTOPRAZOLE SODIUM 40 MG/VIAL IVP SCH (09:14)
[2021-07-29 10:03] LABS: BASOPHILS % (AUTO) 3.2 % (0.0-2.0); EOSINOPHILS % (AUTO) 3.7 % (1.0-6.0); HEMATOCRIT 39.4 % (41-53); HEMOGLOBIN 13.4 g/dL (13.5-17.5); LYMPHOCYTES % (AUTO) 9.5 % (22.0-44.0); MEAN CORPUSCULAR HEMOGLOBIN 33.4 pg (26.0-34.0); MEAN CORPUSCULAR VOLUME 98 fL (80-100); MONOCYTES # (AUTO) 0.6 K/uL (0.1-1.0); MONOCYTES % (AUTO) 5.8 % (2.0-9.0); NEUTROPHILS # (AUTO) 8.5 K/uL (1.8-7.7); NEUTROPHILS % (AUTO) 77.8 % (40.0-70.0); PLATELET COUNT (AUTO) 333 K/uL (150-450)
[2021-07-29] MEDS: TAMSULOSIN HCL 0.4 MG CAPSULE PO SCH ×2 (10:36→21:13)
[2021-07-29 10:37] VITALS: BP 123/72
[2021-07-29] MEDS: LORazepam 2 MG/ML VIAL IVP PRN ×2 (14:22→21:14)
[2021-07-29 14:39] VITALS: BP 128/66
[2021-07-29 20:18] VITALS: BP 102/66
[2021-07-29] MEDS: SODIUM CHLORIDE IV SCH ×8 (23:45)
[2021-07-29] MEDS: PPN IV SCH ×8 (23:45)
[2021-07-29] MEDS: [UNRECOGNIZED DRUG - OTHER] IV SCH ×8 (23:45)
[2021-07-29] MEDS: POTASSIUM CHLORIDE IV SCH ×8 (23:45)
[2021-07-29] MEDS: HYDROCODONE/ACETAMINOPHEN 5-325 MG TABLET PO PRN (23:53)
[2021-07-30] VITALS (7 sets, daily range): BP systolic 97–117; BP diastolic 56–77
[2021-07-30] MEDS: ChlordiazePOXIDE HCL 10 MG CAPSULE PO SCH ×4 (00:21→23:06)
[2021-07-30] MEDS: LORazepam 2 MG/ML VIAL IVP PRN ×2 (02:10→23:06)
[2021-07-30] MEDS ORDERED: SODIUM CHLORIDE 0.9% 250 ML IV ONE (03:27)
[2021-07-30] MEDS: PIPERACILLIN/TAZO 3.375 GM/D5W 50 ML IV SCH ×4 (03:52→20:35)
[2021-07-30 06:31] LABS: ANION GAP 14 mmol/L (8-16); CALCIUM, TOTAL 9.3 mg/dL (8.8-10.5); CARBON DIOXIDE 25 mmol/L (22-29); CHLORIDE 102 mmol/L (98-107); CREATININE 0.68 mg/dL (0.60-1.30); GLOMERULAR FILTR. RATE CALC > 60 mL/min (>60); GLUCOSE,RANDOM 108 mg/dL (70-110); POTASSIUM 3.7 mmol/L (3.5-5.1); SODIUM SERUM 141 mmol/L (136-145); UREA NITROGEN, BLOOD 19 mg/dL (7-18)
[2021-07-30] MEDS: PANTOPRAZOLE SODIUM 40 MG/VIAL IVP SCH (08:49)
[2021-07-30] MEDS: TAMSULOSIN HCL 0.4 MG CAPSULE PO SCH ×2 (08:49→20:34)
[2021-07-30] MEDS: ETHYL ALCOHOL 62% ANTISEPTIC NASAL INHALANT 0.6 ML AMPUL NASAL SCH ×2 (08:49→20:42)
[2021-07-30] MEDS: HYDROCODONE/ACETAMINOPHEN 5-325 MG TABLET PO PRN (20:34)
[2021-07-30] MEDS: POTASSIUM CHLORIDE IV SCH ×8 (23:01)
[2021-07-30] MEDS: [UNRECOGNIZED DRUG - OTHER] IV SCH ×8 (23:01)
[2021-07-30] MEDS: SODIUM CHLORIDE IV SCH ×8 (23:01)
[2021-07-30] MEDS: PPN IV SCH ×8 (23:01)
[2021-07-31] MEDS: LORazepam 2 MG/ML VIAL IVP PRN (03:02)
[2021-07-31] MEDS: PIPERACILLIN/TAZO 3.375 GM/D5W 50 ML IV SCH ×4 (03:02→20:01)
[2021-07-31 04:42] VITALS: BP 102/68
[2021-07-31 06:54] VITALS: BP 112/70
[2021-07-31] MEDS: PANTOPRAZOLE SODIUM 40 MG/VIAL IVP SCH (08:14)
[2021-07-31] MEDS: ChlordiazePOXIDE HCL 10 MG CAPSULE PO SCH ×3 (08:14→23:47)
[2021-07-31] MEDS: TAMSULOSIN HCL 0.4 MG CAPSULE PO SCH ×2 (08:15→20:01)
[2021-07-31] MEDS: ETHYL ALCOHOL 62% ANTISEPTIC NASAL INHALANT 0.6 ML AMPUL NASAL SCH ×2 (08:15→20:01)
[2021-07-31 09:43] LABS: ANION GAP 11 mmol/L (8-16); CARBON DIOXIDE 25 mmol/L (22-29); CHLORIDE 100 mmol/L (98-107); CREATININE 0.69 mg/dL (0.60-1.30); GLOMERULAR FILTR. RATE CALC > 60 mL/min (>60); GLUCOSE,RANDOM 148 mg/dL (70-110); PHOSPHORUS 3.9 mg/dL (2.5-4.9); POTASSIUM 3.6 mmol/L (3.5-5.1); SODIUM SERUM 136 mmol/L (136-145); UREA NITROGEN, BLOOD 14 mg/dL (7-18)
[2021-07-31 11:49] VITALS: BP 114/70
[2021-07-31 15:44] VITALS: BP 120/75
[2021-07-31 19:27] VITALS: BP 109/71
[2021-07-31 23:07] VITALS: BP 112/61
[2021-07-31] MEDS: PPN IV SCH ×8 (23:43)
[2021-07-31] MEDS: SODIUM CHLORIDE IV SCH ×8 (23:43)
[2021-07-31] MEDS: [UNRECOGNIZED DRUG - OTHER] IV SCH ×8 (23:43)
[2021-07-31] MEDS: POTASSIUM CHLORIDE IV SCH ×8 (23:43)
[2021-08-01] MEDS: PIPERACILLIN/TAZO 3.375 GM/D5W 50 ML IV SCH ×4 (03:41→20:03)
[2021-08-01 04:00] VITALS: BP 117/73
[2021-08-01 07:26] LABS: ANION GAP 11 mmol/L (8-16); CALCIUM, TOTAL 9.2 mg/dL (8.8-10.5); CARBON DIOXIDE 25 mmol/L (22-29); CHLORIDE 99 mmol/L (98-107); GLOMERULAR FILTR. RATE CALC > 60 mL/min (>60); GLUCOSE,RANDOM 99 mg/dL (70-110); PHOSPHORUS 3.2 mg/dL (2.5-4.9); POTASSIUM 3.6 mmol/L (3.5-5.1); SODIUM SERUM 135 mmol/L (136-145); UREA NITROGEN, BLOOD 10 mg/dL (7-18)
[2021-08-01] MEDS: LORazepam 2 MG/ML VIAL IVP PRN ×2 (08:02→22:08)
[2021-08-01 08:04] VITALS: BP 128/79
[2021-08-01] MEDS: POTASSIUM CHLORIDE 20 MEQ ER TABLET PO PRN (08:09)
[2021-08-01] MEDS: PANTOPRAZOLE SODIUM 40 MG/VIAL IVP SCH (08:09)
[2021-08-01] MEDS: TAMSULOSIN HCL 0.4 MG CAPSULE PO SCH ×2 (08:09→20:03)
[2021-08-01] MEDS: ChlordiazePOXIDE HCL 10 MG CAPSULE PO SCH ×3 (08:09→23:12)
[2021-08-01] MEDS: ETHYL ALCOHOL 62% ANTISEPTIC NASAL INHALANT 0.6 ML AMPUL NASAL SCH ×2 (08:09→22:10)
[2021-08-01 11:37] VITALS: BP 103/64
[2021-08-01 16:02] VITALS: BP_SYST 114; BP_SYST 125; BP_DIAS 62; BP_DIAS 67
[2021-08-01 19:50] VITALS: BP 119/75
[2021-08-01] MEDS: ACETAMINOPHEN 325 MG TABLET PO PRN (20:04)
[2021-08-01] MEDS: PPN IV SCH ×9 (23:10)
[2021-08-01] MEDS: POTASSIUM CHLORIDE IV SCH ×9 (23:10)
[2021-08-01] MEDS: [UNRECOGNIZED DRUG - OTHER] IV SCH ×9 (23:10)
[2021-08-01] MEDS: SODIUM CHLORIDE IV SCH ×9 (23:10)
[2021-08-01 23:55] VITALS: BP 113/67
[2021-08-02] MEDS: PIPERACILLIN/TAZO 3.375 GM/D5W 50 ML IV SCH ×4 (02:50→23:15)
[2021-08-02] MEDS: LORazepam 2 MG/ML VIAL IVP PRN ×3 (03:39→14:45)
[2021-08-02 06:27] VITALS: BP 134/61
[2021-08-02 06:27] LABS: ANION GAP 8 mmol/L (8-16); CALCIUM, TOTAL 9.3 mg/dL (8.8-10.5); CARBON DIOXIDE 28 mmol/L (22-29); CHLORIDE 99 mmol/L (98-107); CREATININE 0.78 mg/dL (0.60-1.30); GLOMERULAR FILTR. RATE CALC > 60 mL/min (>60); GLUCOSE,RANDOM 114 mg/dL (70-110); PHOSPHORUS 3.9 mg/dL (2.5-4.9); POTASSIUM 3.4 mmol/L (3.5-5.1); SODIUM SERUM 135 mmol/L (136-145); UREA NITROGEN, BLOOD 10 mg/dL (7-18)
[2021-08-02] MEDS: TAMSULOSIN HCL 0.4 MG CAPSULE PO SCH ×2 (08:37→20:29)
[2021-08-02] MEDS: ChlordiazePOXIDE HCL 10 MG CAPSULE PO SCH ×3 (08:37→23:15)
[2021-08-02] MEDS: ETHYL ALCOHOL 62% ANTISEPTIC NASAL INHALANT 0.6 ML AMPUL NASAL SCH ×2 (08:40→20:29)
[2021-08-02] MEDS: PANTOPRAZOLE SODIUM 40 MG/VIAL IVP SCH (09:32)
[2021-08-02 09:47] VITALS: BP 120/68
[2021-08-02] MEDS ORDERED: LORazepam 2 MG/ML VIAL IM ONE (12:00)
[2021-08-02] MEDS ORDERED: HALOPERIDOL LACTATE 5 MG/ML VIAL IM ONE (12:00)
[2021-08-02] MEDS ORDERED: DiphenhydrAMINE HCL 50 MG/ML VIAL IM ONE (12:00)
[2021-08-02] MEDS ORDERED: HALOPERIDOL 5 MG TABLET PO PRN (12:15)
[2021-08-02 12:22] VITALS: BP 108/49
[2021-08-02 16:01] VITALS: BP 111/70
[2021-08-02] MEDS: VALPROIC ACID 250 MG/5 ML SOLUTION UDCUP PO SCH (20:29)
[2021-08-02 20:39] VITALS: BP 117/71
[2021-08-02] MEDS: PPN IV SCH ×9 (23:15)
[2021-08-02] MEDS: SODIUM CHLORIDE IV SCH ×9 (23:15)
[2021-08-02] MEDS: [UNRECOGNIZED DRUG - OTHER] IV SCH ×9 (23:15)
[2021-08-02] MEDS: POTASSIUM CHLORIDE IV SCH ×9 (23:15)
[2021-08-03 00:13] VITALS: BP 117/77
[2021-08-03] MEDS: PIPERACILLIN/TAZO 3.375 GM/D5W 50 ML IV SCH ×4 (04:06→21:23)
[2021-08-03 04:21] VITALS: BP 113/69
[2021-08-03 07:18] LABS: ANION GAP 6 mmol/L (8-16); CALCIUM, TOTAL 9.3 mg/dL (8.8-10.5); CARBON DIOXIDE 25 mmol/L (22-29); CHLORIDE 102 mmol/L (98-107); CREATININE 0.65 mg/dL (0.60-1.30); GLOMERULAR FILTR. RATE CALC > 60 mL/min (>60); GLUCOSE,RANDOM 102 mg/dL (70-110); PHOSPHORUS 4.4 mg/dL (2.5-4.9); POTASSIUM 4.1 mmol/L (3.5-5.1); SODIUM SERUM 133 mmol/L (136-145); UREA NITROGEN, BLOOD 11 mg/dL (7-18)
[2021-08-03 07:27] VITALS: BP 101/66
[2021-08-03] MEDS: PANTOPRAZOLE SODIUM 40 MG/VIAL IVP SCH (08:09)
[2021-08-03] MEDS: ETHYL ALCOHOL 62% ANTISEPTIC NASAL INHALANT 0.6 ML AMPUL NASAL SCH ×2 (08:10→21:23)
[2021-08-03] MEDS: ChlordiazePOXIDE HCL 10 MG CAPSULE PO SCH ×2 (08:10→16:50)
[2021-08-03] MEDS: VALPROIC ACID 250 MG/5 ML SOLUTION UDCUP PO SCH ×2 (08:10→21:23)
[2021-08-03] MEDS: TAMSULOSIN HCL 0.4 MG CAPSULE PO SCH ×2 (08:10→21:23)
[2021-08-03 12:05] VITALS: BP 111/58
[2021-08-03] MEDS ORDERED: SODIUM CHLORIDE 0.9% 250 ML IV ONE (15:33)
[2021-08-03 16:08] VITALS: BP 128/78
[2021-08-03 19:58] VITALS: BP 124/71
[2021-08-03] MEDS: SODIUM CHLORIDE IV SCH ×9 (22:29)
[2021-08-03] MEDS: POTASSIUM CHLORIDE IV SCH ×9 (22:29)
[2021-08-03] MEDS: [UNRECOGNIZED DRUG - OTHER] IV SCH ×9 (22:29)
[2021-08-03] MEDS: PPN IV SCH ×9 (22:29)
[2021-08-04 00:15] VITALS: BP 119/67
[2021-08-04] MEDS: ChlordiazePOXIDE HCL 10 MG CAPSULE PO SCH ×3 (00:24→16:33)
[2021-08-04] MEDS: PIPERACILLIN/TAZO 3.375 GM/D5W 50 ML IV SCH ×4 (03:05→20:15)
[2021-08-04 04:00] VITALS: BP 117/73
[2021-08-04 06:02] LABS: ANION GAP 8 mmol/L (8-16); CALCIUM, TOTAL 8.9 mg/dL (8.8-10.5); CARBON DIOXIDE 26 mmol/L (22-29); CHLORIDE 101 mmol/L (98-107); CREATININE 0.76 mg/dL (0.60-1.30); GLOMERULAR FILTR. RATE CALC > 60 mL/min (>60); GLUCOSE,RANDOM 124 mg/dL (70-110); POTASSIUM 3.7 mmol/L (3.5-5.1); SODIUM SERUM 135 mmol/L (136-145); UREA NITROGEN, BLOOD 12 mg/dL (7-18)
[2021-08-04] MEDS: ETHYL ALCOHOL 62% ANTISEPTIC NASAL INHALANT 0.6 ML AMPUL NASAL SCH ×2 (08:10→21:00)
[2021-08-04] MEDS: VALPROIC ACID 250 MG/5 ML SOLUTION UDCUP PO SCH ×2 (08:16→20:16)
[2021-08-04] MEDS: TAMSULOSIN HCL 0.4 MG CAPSULE PO SCH ×2 (08:16→20:16)
[2021-08-04] MEDS: PANTOPRAZOLE SODIUM 40 MG/VIAL IVP SCH (08:16)
[2021-08-04 08:43] VITALS: BP 130/80
[2021-08-04 12:10] VITALS: BP 97/78
[2021-08-04 19:35] VITALS: BP 110/65
[2021-08-04 21:59] LABS: BASOPHILS % (AUTO) 4.2 % (0.0-2.0); EOSINOPHILS % (AUTO) 4.1 % (1.0-6.0); HEMATOCRIT 38.1 % (41-53); LYMPHOCYTES # (AUTO) 1.1 K/uL (1.0-4.8); LYMPHOCYTES % (AUTO) 17.2 % (22.0-44.0); MEAN CORPUSCULAR HEMOGLOBIN 33.6 pg (26.0-34.0); MEAN CORPUSCULAR HGB CONC 34.2 G/dL (31.0-37.0); MEAN CORPUSCULAR VOLUME 98 fL (80-100); MONOCYTES # (AUTO) 0.7 K/uL (0.1-1.0); MONOCYTES % (AUTO) 10.2 % (2.0-9.0); NEUTROPHILS # (AUTO) 4.2 K/uL (1.8-7.7); NEUTROPHILS % (AUTO) 64.3 % (40.0-70.0); PLATELET COUNT (AUTO) 371 K/uL (150-450); RED BLOOD CELL COUNT(AUTO) 3.88 MIL/uL (4.50-5.90); RED CELL DISTRIBUTION WIDTH 14.7 % (11.5-14.5)
[2021-08-04] MEDS: POTASSIUM CHLORIDE IV SCH ×9 (22:00)
[2021-08-04] MEDS: SODIUM CHLORIDE IV SCH ×9 (22:00)
[2021-08-04] MEDS: [UNRECOGNIZED DRUG - OTHER] IV SCH ×9 (22:00)
[2021-08-04] MEDS: PPN IV SCH ×9 (22:00)
[2021-08-04 22:08] LABS: ANION GAP 7 mmol/L (8-16); CALCIUM, TOTAL 8.7 mg/dL (8.8-10.5); CARBON DIOXIDE 27 mmol/L (22-29); CHLORIDE 103 mmol/L (98-107); GLOMERULAR FILTR. RATE CALC > 60 mL/min (>60); GLUCOSE,RANDOM 138 mg/dL (70-110); POTASSIUM 3.8 mmol/L (3.5-5.1); SODIUM SERUM 137 mmol/L (136-145); UREA NITROGEN, BLOOD 12 mg/dL (7-18)
[2021-08-04 22:16] LABS: ALANINE AMINOTRANSFERASE 71 U/L (12-78); ALKALINE PHOSPHATASE 153 U/L (46-116); ASPARTATE AMINOTRANSFERASE 41 U/L (15-37); BILIRUBIN,TOTAL 0.4 mg/dL (0.1-1.0); TOTAL PROTEIN, SERUM 7.4 g/dL (6.4-8.2)
[2021-08-04 23:00] VITALS: BP 101/65
[2021-08-05] MEDS: ChlordiazePOXIDE HCL 10 MG CAPSULE PO SCH ×4 (01:53→23:44)
[2021-08-05] MEDS: PIPERACILLIN/TAZO 3.375 GM/D5W 50 ML IV SCH ×4 (03:00→20:01)
[2021-08-05 04:05] VITALS: BP 107/68
[2021-08-05 06:24] LABS: BASOPHILS % (AUTO) 3.2 % (0.0-2.0); EOSINOPHILS % (AUTO) 2.3 % (1.0-6.0); HEMATOCRIT 38.8 % (41-53); HEMOGLOBIN 13.4 g/dL (13.5-17.5); LYMPHOCYTES # (AUTO) 1.1 K/uL (1.0-4.8); LYMPHOCYTES % (AUTO) 12.5 % (22.0-44.0); MEAN CORPUSCULAR HGB CONC 34.6 G/dL (31.0-37.0); MEAN CORPUSCULAR VOLUME 98 fL (80-100); MONOCYTES # (AUTO) 0.9 K/uL (0.1-1.0); MONOCYTES % (AUTO) 9.8 % (2.0-9.0); NEUTROPHILS # (AUTO) 6.3 K/uL (1.8-7.7); NEUTROPHILS % (AUTO) 72.2 % (40.0-70.0); PLATELET COUNT (AUTO) 355 K/uL (150-450); RED BLOOD CELL COUNT(AUTO) 3.95 MIL/uL (4.50-5.90); RED CELL DISTRIBUTION WIDTH 14.8 % (11.5-14.5)
[2021-08-05 06:35] LABS: ALANINE AMINOTRANSFERASE 71 U/L (12-78); ALBUMIN 3.2 g/dL (3.4-5.0); ALKALINE PHOSPHATASE 165 U/L (46-116); ANION GAP 4 mmol/L (8-16); ASPARTATE AMINOTRANSFERASE 52 U/L (15-37); BILIRUBIN,TOTAL 0.5 mg/dL (0.1-1.0); CARBON DIOXIDE 31 mmol/L (22-29); CHLORIDE 101 mmol/L (98-107); CREATININE 0.69 mg/dL (0.60-1.30); GLOMERULAR FILTR. RATE CALC > 60 mL/min (>60); GLUCOSE,RANDOM 132 mg/dL (70-110); PHOSPHORUS 3.3 mg/dL (2.5-4.9); POTASSIUM 3.4 mmol/L (3.5-5.1); SODIUM SERUM 136 mmol/L (136-145); TOTAL PROTEIN, SERUM 7.9 g/dL (6.4-8.2); UREA NITROGEN, BLOOD 11 mg/dL (7-18)
[2021-08-05] MEDS: VALPROIC ACID 250 MG/5 ML SOLUTION UDCUP PO SCH ×2 (08:05→20:01)
[2021-08-05] MEDS: TAMSULOSIN HCL 0.4 MG CAPSULE PO SCH ×2 (08:06→20:01)
[2021-08-05] MEDS: PANTOPRAZOLE SODIUM 40 MG/VIAL IVP SCH (08:07)
[2021-08-05] MEDS: ETHYL ALCOHOL 62% ANTISEPTIC NASAL INHALANT 0.6 ML AMPUL NASAL SCH ×2 (08:12→20:01)
[2021-08-05 08:30] VITALS: BP 128/68
[2021-08-05 11:42] VITALS: BP 117/78
[2021-08-05] MEDS: POTASSIUM CHLORIDE 20 MEQ ER TABLET PO PRN (12:05)
[2021-08-05 16:06] VITALS: BP 112/75
[2021-08-05 19:21] VITALS: BP 98/68
[2021-08-06 00:19] VITALS: BP 113/71
[2021-08-06] MEDS: PIPERACILLIN/TAZO 3.375 GM/D5W 50 ML IV SCH ×4 (02:24→23:55)
[2021-08-06 05:19] VITALS: BP 98/62
[2021-08-06 06:58] LABS: EOSINOPHILS % (AUTO) 4.8 % (1.0-6.0); HEMATOCRIT 39.1 % (41-53); HEMOGLOBIN 13.3 g/dL (13.5-17.5); LYMPHOCYTES % (AUTO) 17.1 % (22.0-44.0); MEAN CORPUSCULAR HEMOGLOBIN 33.2 pg (26.0-34.0); MEAN CORPUSCULAR VOLUME 98 fL (80-100); MONOCYTES # (AUTO) 0.8 K/uL (0.1-1.0); MONOCYTES % (AUTO) 13.2 % (2.0-9.0); NEUTROPHILS # (AUTO) 3.5 K/uL (1.8-7.7); NEUTROPHILS % (AUTO) 61.9 % (40.0-70.0); PLATELET COUNT (AUTO) 315 K/uL (150-450); RED CELL DISTRIBUTION WIDTH 14.6 % (11.5-14.5)
[2021-08-06 07:18] LABS: ALANINE AMINOTRANSFERASE 58 U/L (12-78); ALBUMIN 3.1 g/dL (3.4-5.0); ALKALINE PHOSPHATASE 142 U/L (46-116); ANION GAP 8 mmol/L (8-16); ASPARTATE AMINOTRANSFERASE 36 U/L (15-37); BILIRUBIN,TOTAL 0.5 mg/dL (0.1-1.0); CARBON DIOXIDE 28 mmol/L (22-29); CHLORIDE 103 mmol/L (98-107); CREATININE 0.65 mg/dL (0.60-1.30); GLOMERULAR FILTR. RATE CALC > 60 mL/min (>60); GLUCOSE,RANDOM 87 mg/dL (70-110); PHOSPHORUS 4.5 mg/dL (2.5-4.9); POTASSIUM 3.5 mmol/L (3.5-5.1); SODIUM SERUM 139 mmol/L (136-145); TOTAL PROTEIN, SERUM 7.4 g/dL (6.4-8.2); UREA NITROGEN, BLOOD 10 mg/dL (7-18)
[2021-08-06 08:04] VITALS: BP 119/76
[2021-08-06] MEDS: TAMSULOSIN HCL 0.4 MG CAPSULE PO SCH ×2 (08:57→20:53)
[2021-08-06] MEDS: VALPROIC ACID 250 MG/5 ML SOLUTION UDCUP PO SCH ×2 (08:57→20:53)
[2021-08-06] MEDS: ETHYL ALCOHOL 62% ANTISEPTIC NASAL INHALANT 0.6 ML AMPUL NASAL SCH ×2 (08:57→20:52)
[2021-08-06] MEDS: PANTOPRAZOLE SODIUM 40 MG/VIAL IVP SCH (08:57)
[2021-08-06] MEDS: ChlordiazePOXIDE HCL 10 MG CAPSULE PO SCH ×3 (08:57→23:55)
[2021-08-06 11:49] VITALS: BP 110/68
[2021-08-06 15:33] VITALS: BP 107/61
[2021-08-06 19:40] VITALS: BP 105/64
[2021-08-07 00:05] VITALS: BP 104/64
[2021-08-07 04:08] VITALS: BP 103/61
[2021-08-07] MEDS: PIPERACILLIN/TAZO 3.375 GM/D5W 50 ML IV SCH ×4 (05:57→23:53)
[2021-08-07 07:00] LABS: BASOPHILS % (AUTO) 3.5 % (0.0-2.0); EOSINOPHILS % (AUTO) 4.4 % (1.0-6.0); HEMOGLOBIN 13.4 g/dL (13.5-17.5); LYMPHOCYTES # (AUTO) 1.1 K/uL (1.0-4.8); LYMPHOCYTES % (AUTO) 20.3 % (22.0-44.0); MEAN CORPUSCULAR HEMOGLOBIN 33.7 pg (26.0-34.0); MEAN CORPUSCULAR HGB CONC 34.3 G/dL (31.0-37.0); MEAN CORPUSCULAR VOLUME 98 fL (80-100); MONOCYTES # (AUTO) 0.7 K/uL (0.1-1.0); MONOCYTES % (AUTO) 12.7 % (2.0-9.0); NEUTROPHILS # (AUTO) 3.2 K/uL (1.8-7.7); NEUTROPHILS % (AUTO) 59.1 % (40.0-70.0); PLATELET COUNT (AUTO) 293 K/uL (150-450); RED BLOOD CELL COUNT(AUTO) 3.97 MIL/uL (4.50-5.90); RED CELL DISTRIBUTION WIDTH 14.8 % (11.5-14.5)
[2021-08-07 07:40] VITALS: BP 106/66
[2021-08-07 07:43] LABS: ALANINE AMINOTRANSFERASE 50 U/L (12-78); ALBUMIN 3.1 g/dL (3.4-5.0); ALKALINE PHOSPHATASE 141 U/L (46-116); ANION GAP 8 mmol/L (8-16); ASPARTATE AMINOTRANSFERASE 33 U/L (15-37); BILIRUBIN,TOTAL 0.5 mg/dL (0.1-1.0); CALCIUM, TOTAL 9.3 mg/dL (8.8-10.5); CARBON DIOXIDE 29 mmol/L (22-29); CHLORIDE 101 mmol/L (98-107); CREATININE 0.72 mg/dL (0.60-1.30); GLOMERULAR FILTR. RATE CALC > 60 mL/min (>60); GLUCOSE,RANDOM 91 mg/dL (70-110); POTASSIUM 3.6 mmol/L (3.5-5.1); SODIUM SERUM 138 mmol/L (136-145); TOTAL PROTEIN, SERUM 7.3 g/dL (6.4-8.2); UREA NITROGEN, BLOOD 8 mg/dL (7-18)
[2021-08-07] MEDS: PANTOPRAZOLE SODIUM 40 MG/VIAL IVP SCH (08:36)
[2021-08-07] MEDS: ChlordiazePOXIDE HCL 10 MG CAPSULE PO SCH (08:36)
[2021-08-07] MEDS: TAMSULOSIN HCL 0.4 MG CAPSULE PO SCH ×2 (08:36→20:45)
[2021-08-07] MEDS: VALPROIC ACID 250 MG/5 ML SOLUTION UDCUP PO SCH ×2 (08:37→20:45)
[2021-08-07] MEDS: ETHYL ALCOHOL 62% ANTISEPTIC NASAL INHALANT 0.6 ML AMPUL NASAL SCH ×2 (08:44→20:45)
[2021-08-07 11:56] VITALS: BP 105/71
[2021-08-07 15:34] VITALS: BP 99/64
[2021-08-07 20:52] VITALS: BP 98/58
[2021-08-08 00:21] VITALS: BP 129/79
[2021-08-08 04:07] VITALS: BP 110/64
[2021-08-08] MEDS: PIPERACILLIN/TAZO 3.375 GM/D5W 50 ML IV SCH ×4 (05:41→23:05)
[2021-08-08 06:35] LABS: BASOPHILS % (AUTO) 3.4 % (0.0-2.0); EOSINOPHILS % (AUTO) 4.7 % (1.0-6.0); HEMATOCRIT 38.6 % (41-53); HEMOGLOBIN 13.5 g/dL (13.5-17.5); LYMPHOCYTES # (AUTO) 1.4 K/uL (1.0-4.8); LYMPHOCYTES % (AUTO) 29.5 % (22.0-44.0); MEAN CORPUSCULAR HGB CONC 35.1 G/dL (31.0-37.0); MEAN CORPUSCULAR VOLUME 97 fL (80-100); MONOCYTES # (AUTO) 0.9 K/uL (0.1-1.0); MONOCYTES % (AUTO) 17.8 % (2.0-9.0); NEUTROPHILS # (AUTO) 2.2 K/uL (1.8-7.7); NEUTROPHILS % (AUTO) 44.6 % (40.0-70.0); PLATELET COUNT (AUTO) 258 K/uL (150-450); RED BLOOD CELL COUNT(AUTO) 3.98 MIL/uL (4.50-5.90); RED CELL DISTRIBUTION WIDTH 14.3 % (11.5-14.5)
[2021-08-08 07:00] LABS: ALANINE AMINOTRANSFERASE 44 U/L (12-78); ALBUMIN 3.1 g/dL (3.4-5.0); ALKALINE PHOSPHATASE 134 U/L (46-116); ANION GAP 8 mmol/L (8-16); ASPARTATE AMINOTRANSFERASE 28 U/L (15-37); BILIRUBIN,TOTAL 0.4 mg/dL (0.1-1.0); CALCIUM, TOTAL 9.2 mg/dL (8.8-10.5); CARBON DIOXIDE 30 mmol/L (22-29); CHLORIDE 103 mmol/L (98-107); CREATININE 0.72 mg/dL (0.60-1.30); GLOMERULAR FILTR. RATE CALC > 60 mL/min (>60); GLUCOSE,RANDOM 99 mg/dL (70-110); POTASSIUM 3.5 mmol/L (3.5-5.1); SODIUM SERUM 141 mmol/L (136-145); TOTAL PROTEIN, SERUM 7.3 g/dL (6.4-8.2); UREA NITROGEN, BLOOD 5 mg/dL (7-18)
[2021-08-08 07:45] VITALS: BP 95/59
[2021-08-08] MEDS: ETHYL ALCOHOL 62% ANTISEPTIC NASAL INHALANT 0.6 ML AMPUL NASAL SCH ×2 (08:19→20:35)
[2021-08-08] MEDS: PANTOPRAZOLE SODIUM 40 MG/VIAL IVP SCH (08:19)
[2021-08-08] MEDS: TAMSULOSIN HCL 0.4 MG CAPSULE PO SCH ×2 (08:19→20:35)
[2021-08-08] MEDS: VALPROIC ACID 250 MG/5 ML SOLUTION UDCUP PO SCH ×2 (08:19→20:35)
[2021-08-08 11:48] VITALS: BP 111/72
[2021-08-08 16:12] VITALS: BP 114/84
[2021-08-08] MEDS ORDERED: SODIUM CHLORIDE 0.9% 250 ML IV ONE (18:20)
[2021-08-08 20:39] VITALS: BP 148/52
[2021-08-09 00:17] VITALS: BP 145/64
[2021-08-09 05:18] VITALS: BP 120/79
[2021-08-09] MEDS: PIPERACILLIN/TAZO 3.375 GM/D5W 50 ML IV SCH ×2 (05:36→12:08)
[2021-08-09 07:24] LABS: BASOPHILS % (AUTO) 2.5 % (0.0-2.0); HEMATOCRIT 40.7 % (41-53); LYMPHOCYTES # (AUTO) 1.3 K/uL (1.0-4.8); LYMPHOCYTES % (AUTO) 27.7 % (22.0-44.0); MEAN CORPUSCULAR HEMOGLOBIN 33.6 pg (26.0-34.0); MEAN CORPUSCULAR HGB CONC 34.5 G/dL (31.0-37.0); MEAN CORPUSCULAR VOLUME 97 fL (80-100); MONOCYTES # (AUTO) 0.6 K/uL (0.1-1.0); MONOCYTES % (AUTO) 12.7 % (2.0-9.0); NEUTROPHILS # (AUTO) 2.4 K/uL (1.8-7.7); NEUTROPHILS % (AUTO) 51.1 % (40.0-70.0); PLATELET COUNT (AUTO) 254 K/uL (150-450); RED BLOOD CELL COUNT(AUTO) 4.18 MIL/uL (4.50-5.90); RED CELL DISTRIBUTION WIDTH 14.5 % (11.5-14.5)
[2021-08-09 07:53] LABS: ALANINE AMINOTRANSFERASE 42 U/L (12-78); ALBUMIN 3.2 g/dL (3.4-5.0); ALKALINE PHOSPHATASE 120 U/L (46-116); ANION GAP 9 mmol/L (8-16); ASPARTATE AMINOTRANSFERASE 28 U/L (15-37); BILIRUBIN,TOTAL 0.4 mg/dL (0.1-1.0); CALCIUM, TOTAL 9.3 mg/dL (8.8-10.5); CARBON DIOXIDE 29 mmol/L (22-29); CHLORIDE 102 mmol/L (98-107); CREATININE 0.64 mg/dL (0.60-1.30); GLOMERULAR FILTR. RATE CALC > 60 mL/min (>60); GLUCOSE,RANDOM 127 mg/dL (70-110); POTASSIUM 3.8 mmol/L (3.5-5.1); SODIUM SERUM 140 mmol/L (136-145); TOTAL PROTEIN, SERUM 7.6 g/dL (6.4-8.2); UREA NITROGEN, BLOOD 7 mg/dL (7-18)
[2021-08-09 08:06] VITALS: BP 110/60
[2021-08-09] MEDS: ETHYL ALCOHOL 62% ANTISEPTIC NASAL INHALANT 0.6 ML AMPUL NASAL SCH ×2 (08:25→20:12)
[2021-08-09] MEDS: TAMSULOSIN HCL 0.4 MG CAPSULE PO SCH ×2 (08:25→20:08)
[2021-08-09] MEDS: PANTOPRAZOLE SODIUM 40 MG/VIAL IVP SCH (08:26)
[2021-08-09] MEDS: VALPROIC ACID 250 MG/5 ML SOLUTION UDCUP PO SCH ×2 (08:26→20:08)
[2021-08-09 11:48] VITALS: BP 113/68
[2021-08-09 19:57] VITALS: BP 111/67
[2021-08-10 00:51] VITALS: BP 131/72
[2021-08-10 05:36] VITALS: BP 127/77
[2021-08-10 07:06] LABS: BASOPHILS % (AUTO) 3.5 % (0.0-2.0); EOSINOPHILS % (AUTO) 7.5 % (1.0-6.0); HEMATOCRIT 41.2 % (41-53); LYMPHOCYTES # (AUTO) 1.3 K/uL (1.0-4.8); LYMPHOCYTES % (AUTO) 31.4 % (22.0-44.0); MEAN CORPUSCULAR HEMOGLOBIN 33.4 pg (26.0-34.0); MEAN CORPUSCULAR HGB CONC 34.1 G/dL (31.0-37.0); MEAN CORPUSCULAR VOLUME 98 fL (80-100); MONOCYTES # (AUTO) 0.4 K/uL (0.1-1.0); MONOCYTES % (AUTO) 10.2 % (2.0-9.0); NEUTROPHILS % (AUTO) 47.4 % (40.0-70.0); PLATELET COUNT (AUTO) 234 K/uL (150-450); RED CELL DISTRIBUTION WIDTH 14.4 % (11.5-14.5)
[2021-08-10 07:09] LABS: ALANINE AMINOTRANSFERASE 37 U/L (12-78); ALBUMIN 3.2 g/dL (3.4-5.0); ALKALINE PHOSPHATASE 149 U/L (46-116); ANION GAP 7 mmol/L (8-16); ASPARTATE AMINOTRANSFERASE 26 U/L (15-37); BILIRUBIN,TOTAL 0.4 mg/dL (0.1-1.0); CALCIUM, TOTAL 9.4 mg/dL (8.8-10.5); CARBON DIOXIDE 30 mmol/L (22-29); CHLORIDE 103 mmol/L (98-107); CREATININE 0.61 mg/dL (0.60-1.30); GLOMERULAR FILTR. RATE CALC > 60 mL/min (>60); GLUCOSE,RANDOM 105 mg/dL (70-110); POTASSIUM 3.8 mmol/L (3.5-5.1); SODIUM SERUM 140 mmol/L (136-145); TOTAL PROTEIN, SERUM 7.4 g/dL (6.4-8.2); UREA NITROGEN, BLOOD 10 mg/dL (7-18)
[2021-08-10 07:37] VITALS: BP 98/61
[2021-08-10] MEDS: VALPROIC ACID 250 MG/5 ML SOLUTION UDCUP PO SCH (09:15)
[2021-08-10] MEDS: PANTOPRAZOLE SODIUM 40 MG/VIAL IVP SCH (09:16)
[2021-08-10] MEDS: ETHYL ALCOHOL 62% ANTISEPTIC NASAL INHALANT 0.6 ML AMPUL NASAL SCH (09:16)
[2021-08-10] MEDS: TAMSULOSIN HCL 0.4 MG CAPSULE PO SCH (09:17)
[2021-08-10 09:41] VITALS: BP 101/67
[2021-08-10] MEDS ORDERED: TAMS-13 PO (10:00)
[2021-08-10] MEDS ORDERED: VALP250C48 PO (10:01)
== END 2021-08-10 10:15 | disposition home health service (06) | DRG 207 ==
LOC: EMS 12:51 → 6S 14:34 → ICU 07-19 03:06 → 5S 07-27 11:50
PROVIDERS: ADMIT Hospitalist; ATTEND Hospitalist
PROC: 5A1955Z Respiratory Ventilation, Greater than 96 Consecutive Hours (ICD-10-PCS; principal; 2021-07-19)
PROC: 0BH17EZ Insertion of Endotracheal Airway into Trachea, Via Natural or Artificial Opening (ICD-10-PCS; 2021-07-19)
PROC: 5A0935A Assistance with Respiratory Ventilation, Less than 24 Consecutive Hours, High Flow/Velocity Cannula (ICD-10-PCS; 2021-07-23)
PROC: 5A0935A Assistance with Respiratory Ventilation, Less than 24 Consecutive Hours, High Flow/Velocity Cannula (ICD-10-PCS; 2021-07-24)
PROC: 5A0935A Assistance with Respiratory Ventilation, Less than 24 Consecutive Hours, High Flow/Velocity Cannula (ICD-10-PCS; 2021-07-25)
PROC: 5A0945A Assistance with Respiratory Ventilation, 24-96 Consecutive Hours, High Flow/Velocity Cannula (ICD-10-PCS; 2021-07-26)
DX: J96.01 Acute respiratory failure with hypoxia (principal); G93.40 Encephalopathy, unspecified; F10.131 Alcohol abuse with withdrawal delirium; Z99.11 Dependence on respirator [ventilator] status; K70.9 Alcoholic liver disease, unspecified; E83.42 Hypomagnesemia; E87.6 Hypokalemia; D69.6 Thrombocytopenia, unspecified; Z20.822 Contact with and (suspected) exposure to COVID-19; Z78.1 Physical restraint status; Z79.899 Other long term (current) drug therapy
CPT/HCPCS: 36245; 36569; 36600; 71045; 76937; 80048; 80053; 81001; 82140; 82550; 82805; 83605; 83690; 83735; 83880; 84100; 84132; 84145; 84484; 85025; 87040; 87070; 87081; 87205; 92526; 92610; 93005; 94002; 94003; 94667; 94668; 94799; 97110; 97112; 97116; 97162; 97166; 97530; 97535; 99285; C9113; G0378; G0480; J0610; J1200; J1630; J2060; J2250; J2543; J2704; J3411; J3475; J3480; J3490; J7030; J7050; J7070; J7131; Q9967; 36415-L1; 36415-TC